=== PATIENT | female | born 1965 | race Caucasian/White ===

== ENCOUNTER → 2020-03-29 14:42 | Outpatient (BNVA) | payer BC, SELFPAY | PROVIDERS: Referring Provider Registered Nurse; Visit Provider Podiatrist Foot & Ankle Surgery | DX: M79.671 Pain in right foot (principal) | CPT/HCPCS: 73630 ==

== ENCOUNTER 2021-01-01 10:25 | Outpatient (CLI) | payer BC, SELFPAY ==
--- NOTE | 2021-01-01 10:38 | US_ITS ---
WS: [id number] ULTRASOUND BILATERAL BREASTs HISTORY: BENIGN HX OF LT BREAST CYST COMPARISON: 11/03/2019 RIGHT breast ultrasound. TECHNIQUE: 2-D and Doppler. RIGHT breast: All 4 quadrants are imaged. There is a small cyst at 10:00, 3 cm the nipple measuring 5 x 4 x 6 mm. There are several small cysts. No solid mass or shadowing. LEFT breast: No suspicious mass or shadowing. Cyst at 2:00, 3 cm the nipple measures 8 x 5 x 6 mm. Th ere are additional smaller cysts. US/[place] breast [place] complete [id number] IMPRESSION: BI-RADS: 0-Incomplete: Need additional imaging evaluation FOLLOW-UP: Need Additional Imaging Recommend screening mammogram. Breast ultrasound does not replace screening jorje mography. Last mammogram available for review is 11/03/2019.
== END 2021-01-01 10:26 | disposition home or self-care (01) ==
PROVIDERS: PCP Family Medicine; Visit Provider Registered Nurse
DX: N60.02 Solitary cyst of left breast (principal)
CPT/HCPCS: 76641

== ENCOUNTER 2021-01-11 15:37 | Outpatient (CLI) | payer BC, SELFPAY ==
--- NOTE | 2021-01-11 15:42 | MM_ITS ---
WS: [id number] BILATERAL SCREENING DIGITAL MAMMOGRAM WITH CAD HISTORY: SCREENING COMPARISON: 11/03/2019 and 10/22/2019 Bilateral CC and MLO views submitted. Computer aided detection analyzed. Breast composition: The breasts are heterogeneously dense, which may obscure small masses. No suspici ous masses, microcalcifications or architectural distortion. Benign calcifications scattered within e ach breast. MM/[place] [id number] IMPRESSION: BI-RADS: 2-Benign FOLLOW UP: 1 Year Follow-up
== END 2021-01-11 15:38 | disposition home or self-care (01) ==
LOC: RADSHAW 15:40
PROVIDERS: PCP Family Medicine; Visit Provider Registered Nurse
DX: Z12.31 Encounter for screening mammogram for malignant neoplasm of breast (principal)
CPT/HCPCS: 77067

== ENCOUNTER 2022-11-07 11:41 | Outpatient (CLI) | payer BC, SELFPAY ==
--- NOTE | 2022-11-07 11:48 | MM_ITS ---
WS: [id number] BILATERAL SCREENING DIGITAL TOMOSYNTHESIS MAMMOGRAM WITH CAD HISTORY: SCREENING COMPARISON: 01/11/2021, 10/22/2019 Bilateral CC and MLO views with tomosynthesis and synthetic mammography submitted. Computer aided det ection analyzed. Breast composition: The breasts are heterogeneously dense, which may obscure small masses. No suspici ous masses, microcalcifications or architectural distortion. Benign calcifications in each breast. MM/[place] [id number] IMPRESSION: BI-RADS: 2-Benign FOLLOW UP: 1 Year Follow-up
== END 2022-11-07 11:42 | disposition home or self-care (01) ==
PROVIDERS: PCP Family Medicine; Visit Provider Registered Nurse
DX: Z12.31 Encounter for screening mammogram for malignant neoplasm of breast (principal)
CPT/HCPCS: 77063; 77067

== ENCOUNTER 2023-05-30 13:30 | Outpatient (CLI) | payer OTHER, SELFPAY ==
[2023-05-30 14:38] LABS: Free T4 Free Thyroxine 1.44 ng/dL (0.82-1.77); Thyroid Stimulating Hormone 1.16 uIU/mL (0.27-4.20)
[2023-05-31 09:39] LABS: T3 Total 114 ng/dL (76-181)
== END 2023-05-30 13:31 | disposition home or self-care (01) ==
PROVIDERS: PCP Registered Nurse; Visit Provider Internal Medicine
DX: E07.9 Disorder of thyroid, unspecified (principal)
CPT/HCPCS: 36415; 84403; 84439; 84443; 84480

== ENCOUNTER 2023-11-25 13:49 | Inpatient (IN) | payer OTHER, SELFPAY ==
[2023-11-25] VITALS (35 sets, daily range): BP systolic 156–194; BP diastolic 74–115; PULSE 64–84; RESP 14–21; TEMP 36.3–36.9; O2SAT 93–100; BMI 26.9; BMI 26.0
--- NOTE | 2023-11-25 14:03 | XR_ITS ---
WS: [id number] Portable AP upright chest, 11/25/2023 Clinical Data: cp Comparison: None. Findings: No nodules, masses or effusions are seen. The heart is normal. The pulmonary vascularity is not increased. No pneumonia or pneumothorax is seen. The aortic arch and descending thoracic aorta s how tortuosity. There are monitor leads on the chest wall. There is a dextroscoliosis. There is a hea led left posterior lateral sixth rib fracture. Impression: Atherosclerosis.
[2023-11-25 14:07] LABS: Basophils % 0.5 %; Eosinophils % 0.3 %; Hematocrit 44.3 % (36-47); Lymphocytes # 2.2 10^3/uL (0.8-4.8); Lymphocytes % 30.4 %; Mean Corpuscular HGB Conc 31.8 g/dL (30-55); Mean Corpuscular Hemoglobin 29.6 pg (27-33); Mean Corpuscular Volume 93.1 fl (85-98); Mean Platelet Volume 9.9 fL (7.4-10.4); Monocytes # 0.5 10^3/uL (0.2-0.9); Monocytes % 6.5 %; Neutrophils # 4.55 10^3/uL (1.8-7.7); Nucleated Red Blood Cells % 0 %; Platelet Count 249 10^3/cmm (157-399); Red Blood Count 4.76 10^6/uL (3.85-5.65); Red Cell Distribution Width 12.9 % (12.1-15.1); White Blood Count 7.34 10^3/uL (3.29-11.43)
--- NOTE | 2023-11-25 14:09 | PC.NURSE ---
Pt on bedside cloth doffer
[2023-11-25 14:33] LABS: Alanine Aminotransferase 10 U/L (0-33); Albumin Level 4.4 g/dL (3.5-5.2); Alkaline Phosphatase 63 U/L (35-105); Blood Urea Nitrogen 16 mg/dL (6-20); Calcium 9.1 mg/dL (8.5-10.5); Carbon Dioxide 23 mmol/L (22-29); Chloride 108 mmol/L (98-107); Creatinine Clr Calc Pharmacy 92.2189; Globulin 2.2 g/dL (1.3-4.6); Glomerular Filtration Rate 86.2 mL/min (90-130); Glucose 96 mg/dL (65-115); Lipase 35 U/L (13-60); Osmolality Calculated 299 mOsm/kg (285-295); Sodium 144 mmol/L (136-145); Total Bilirubin 0.6 mg/dL (0.15-1.2); Total Protein 6.6 g/dL (6.6-8.7)
[2023-11-25 14:39] LABS: Anion Gap 16.9 (5-19); Aspartate Amino Transferase 15 U/L (0-32); Potassium 3.9 mmol/L (3.5-5.1)
[2023-11-25 14:42] LABS: Troponin(5th) Baseline < 6 ng/L (0-10)
[2023-11-25 14:47] LABS: INR 0.93 (0.8-1.2)
--- NOTE | 2023-11-25 15:12 | ED_ITS ---
HPI - Chest Pain 2 General: Chief Complaint: Chest Pain Stated Complaint: chest pain Time Seen by Provider: 11/25/23 14:45 Source: patient Mode of arrival: ambulatory History of Present Illness: 58-year-old female presents emergency ro om complaining of chest pain that began while at rest. She thought it was due to stress that happened about 30 minutes prior to arrival by the time she arrives here it is resolved. She did take Tums aspirin diazepam. She had a little shortness of breath with it as well as symptoms radiated into her neck and arms. No known history of coronary disease she is not short of breath at this time no difficulty speech swallowing or gait. MD complaint: chest pain Onset (ago): minute(s) (30) Prior episodes: No Onset: during rest Pain location: substernal Pain radiation: right arm, left arm, left shoulder and right shoulder Severity: moderate Quality: aching and heaviness Relieving factors: nothing Exacerbating factors: nothing Associated symptoms: Reports dyspnea; Deny abdominal pain, diaphoresis, fever(s), leg edema, nausea, palpitations, sense of impending doom, syncope or vomiting Treatment prior to arrival: aspirin Review of Systems 2 Const: Denies: fever(s) or diaphoresis Card: Reports: chest pain; Denies: palpitations or syncope Resp: Reports: dyspnea GI: Denies: abdominal pain, nausea or vomiting [facility] ED 2 PFSH: Medical History (Updated 11/26/23 @ 15:00 by Levar Jin DO) Scoliosis Accelerated essential hypertension Occasional tremors Surgical History Hx of dilation and curettage Family History Father Hypertension Mother Hypothyroidism Sister Hypothyroidism Social History Smoking and tobacco/nicotine status: current some day tobacco/nicotine user cigarettes Alcohol intake: current Alcohol intake frequency: few times a week Course 2 Vital Signs: Vital signs: Vital Signs Temperature 98.2 F 11/26/23 14:00 Pulse Rate 77 11/26/23 14:00 Respiratory Rate 12 11/26/23 14:00 Blood Pressure 145/72 11/26/23 14:00 Pulse Oximetry 96 11/26/23 14:00 Oxygen Delivery Me thod Room Air 11/26/23 08:15 MDM - Chest Pain Medical Decision Making 2-hour troponin is a positive delta of 95 EKG does not show any acute changes. Started on heparin drip initially she was given aspirin and put on nitro will 3 history of Frova Nitropaste to nitro drip. Discussed with hospitalist and with ciaio lumite injector will admit for cardiology consult. Medical Records I reviewed the patient's medical records. Lab Data I reviewed the patient's lab results. 11/26/23 06:05 11/26/23 06:05 Laboratory Results WBC 7.34 10^3/uL (3.29-11.43) 11/25/23 14:01 RBC 4.76 10^6/uL (3.85-5.65) 11/25/23 14:01 Hgb 14.10 g/dL (11.27-16.99) 11/25/23 14:01 Hct 44.3 % (36-47) 11/25/23 14:01 MCV 93.1 fl (85-98) 11/25/23 14:01 MCH 29.6 pg (27-33) 11/25/23 14:01 MCHC 31.8 g/dL (30-55) 11/25/23 14:01 RDW 12.9 % (12.1-15.1) 11/25/23 14:01 Plt Count 249 10^3/cmm (157-399) 11/25/23 14:01 MPV 9.9 fL (7.4-10.4) 11/25/23 14:01 Neut % (Auto) 62.0 % 11/25/23 14:01 Lymph % (Auto) 30.4 % 11/25/23 14:01 Cocke % (Auto) 6.5 % 11/25/23 14:01 Eos % (Auto) 0.3 % 11/25/23 14:01 Baso % (Auto) 0.5 % 11/25/23 14:01 Neut # (Auto) 4.55 10^3/uL (1.8-7.7) 11/25/23 14:01 Lymph # (Auto) 2.2 10^3/uL (0.8-4.8) 11/25/23 14:01 Cocke # (Auto) 0.5 10^3/uL (0.2-0.9) 11/25/23 14:01 Eos # (Auto) 0.0 10^3/uL (0.0-0.8) 11/25/23 14:01 Baso # (Auto) 0.0 10^3/uL (0.0-0.1) 11/25/23 14:01 Nucleated RBC % (auto) 0 % 11/25/23 14:01 Nucleated RBCs # 0.0 /100WBC 11/25/23 14:01 PT 12.80 SECONDS (12.1-14.9) 11/25/23 14:01 INR 0.93 (0.8-1.2) 11/25/23 14:01 Sodium 144 mmol/L (136-145) 11/25/23 14:01 Potassium 3.9 mmol/L (3.5-5.1) 11/25/23 14:01 Chloride 108 mmol/L (98-107) H 11/25/23 14:01 Carbon Dioxide 23 mmol/L (22-29) 11/25/23 14:01 Anion Gap 16.9 (5-19) 11/25/23 14:01 BUN 16 mg/dL (6-20) 11/25/23 14:01 Creatinine 0.7 mg/dL (0.5-0.9) 11/25/23 14:01 GFR Calculation 86.2 mL/min (90-130) L 11/25/23 14:01 Glucose 96 mg/dL (65-115) 11/25/23 14:01 Calculated Osmolality 299 mOsm/kg (285-295) H 11/25/23 14:01 Calcium 9.1 mg/dL (8.5-10.5) 11/25/23 14:01 Total Bilirubin 0.6 mg/dL (0.15-1.2) 11/25/23 14:01 AST 15 U/L (0-32) 11/25/23 14:01 ALT 10 U/L (0-33) 11/25/23 14:01 Alkaline Phosphatase 63 U/L (35-105) 11/25/23 14:01 Troponin T Baseline < 6 ng/L (0-10) 11/25/23 14:01 Troponin T 120 Minute 101.2 ng/L (0-10) H 11/25/23 16:12 Delta Troponin T 95.18375 ABS# (0-10) H* 11/25/23 16:12 Total Protein 6.6 g/dL (6.6-8.7) 11/25/23 14:01 Albumin 4.4 g/dL (3.5-5.2) 11/25/23 14:01 Globulin 2.2 g/dL (1.3-4.6) 11/25/23 14:01 Lipase 35 U/L (13-60) 11/25/23 14:01 All radiology interpretation(s) finalized by discharge Discharge Plan Discharge Patient Disposition: Admitted As Inpatient Admit Provider: Arnold Hatch Clinical Impression: NSTEMI (non-ST elevated myocardial infarction), Hypertension Condition: Stable Coding Level of Care Code ED Senior Manager Mmcoe for Imelda Das
--- NOTE | 2023-11-25 15:54 | ECG_ITS ---
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 Measurements Intervals [place] Rate: 60 P: 64 TN: 183 QRS: -52 QRSD: 84 T: 18 QT: 388 QTc: 390 Interpretive Statements SINUS RHYTHM POSSIBLE LEFT ATRIAL ENLARGEMENT [-0.1mV P-WAVE IN V1/V2] POSSIBLE RIGHT VENTRICULAR CONDUCTION DELAY [RSR (QR) IN V1/V2] LEFT ANTERIOR FASCICULAR BLOCK [QRS AXIS <= -45, QR IN I, RS IN II] No previous ECG available for comparison Electronically Signed On 11-25-2023 21:37:57 CDT by Mckay Sher M.D. [email or web address]
[2023-11-25 17:23] LABS: Troponin 5 2HR 101.2 ng/L (0-10); Troponin 5 2HR Delta 95.20001 ABS# (0-10)
--- NOTE | 2023-11-25 17:46 | USCV_ITS ---
Elizabeth Nena Age: 58 Gender: F : 1965 Exam Date: 11/25/2023 20:10 Ordering Phys: Arnold Hatch MD Technologist: KESHA Exam Location: [facility] [place] Indication: order says NSTEMI , no history of cardiac intervention per patient. BP: 171 / 77 HR: 74 Rhythm: Sinus Technical Quality: Good MEASUREMENTS (Male / Female) Normal Values 2D ECHO LV Diastolic Diameter PLAX 3.5 cm 4.2 - 5.9 / 3.9 - 5.3 cm IVS Diastolic Thickness 1.0 cm 0.6 - 1.0 / 0.6 - 0.9 cm IVS Systolic Thickness 1.6 cm LVPW Diastolic Thickness 1.1 cm 0.6 - 1.0 / 0.6 - 0.9 cm LVPW Systolic Thickness 1.7 cm LVOT Diameter 1.9 cm LV Ejection Fraction 2D Teich 64.7 % LV Ejection Fraction MOD 2C 77.0 % LV Ejection Fraction 2C AL 78.5 % LA Diameter 2.6 cm Aorta at Sinotubular Diameter 3.2 cm IVC Diameter 1.3 cm M-MODE LA Ao Ratio MM 0.9 AV Cusp Separation MM 1.8 cm DOPPLER AV Peak Velocity 120.0 cm/s LVOT Peak Velocity 124.0 cm/s AV Area Cont Eq vti 2.8 cm squared AV Area Cont Eq pk 2.8 cm squared MV Peak Velocity 83.0 cm/s MV Area PHT 2.9 cm squared Mitral E to A Ratio 0.7 TR Peak Velocity 229.0 cm/s TR Peak Gradient 21.0 mmHg TV Peak E Velocity 55.0 cm/s Right Atrial Pressure 3.0 mmHg Pulmonary Artery Systolic Pressu 24.0 mmHg PV Peak Velocity 93.0 cm/s FINDINGS Left Ventricle Left ventricle is normal in size. LV systolic function is normal with EF of 60 to 65%. No regional wall motion abnormalities are seen. Grade 1 diastolic dysfunction Right Ventricle Normal in size and function Right Atrium Normal in size Left Atrium Normal in size Mitral Valve Structurally normal mitral valve. Mild mitral regurgitation Aortic Valve Structurally normal aortic valve. No significant stenosis or regurgitation. Tricuspid Valve Mild tricuspid regurgitation. Pulmonary artery systolic pressure is normal. Pulmonic Valve Not well visualized Pericardium Normal Aorta Ascending aorta is mildly dilated with diameter of 3.6 cm. IVC Appears to be normal CONCLUSIONS LV systolic function is normal with EF of 60-65% Grade 1 diastolic dysfunction Mild mitral regurgitation Mild tricuspid regurgitation Ascending aorta is mildly dilated with diameter of 3.6cm No comparison studies are available. Mckay Sher MD (Electronically Signed) Final Date: 26 November 2023 07:51 S
--- NOTE | 2023-11-25 17:51 | P.HP_ITS ---
Providers/Chief Complaint 2 Primary Care Provider: GLADYS Valencia Chief Complaint: chest pain History of Present Illness Nena Johnson is a 58 year old female With a past medical history of hypertension, hypertension, who presents [facility] for chest pain, patient tells me that this morning at work, she had a sudden onset of substernal chest pain pressure-like pain lasting a few minutes radiating down her right arm, no associated shortness of breath no associated lightheadedness, she was at work so her coworkers advised her to take 81 mg aspirin, however chest pain per assisted so she came to [facility] for evaluation, she did admit that she took phentermine this morning she uses it for weight loss, she is chronically on phentermine and she does have an estradiol patch which I advised her to remove, she did also take progesterone this morning, she is on hormone replacement for postmenopausal symptoms, she tells me that she is recently under a lot of stress, she is going through her divorce, denies any prior history of CAD no prior history of chest pain no family history of CAD currently she is chest pain-free, blood pressure 170/180, pulse 72 respiratory 18, she is on room air, Review of Systems 2 Const: Denies: fever(s) Card: Reports: chest pain Resp: Denies: dyspnea GI: Denies: abdominal pain : Denies: flank pain Medications/Allergies Home Medications Medication Instructions Recorded Confirmed Last Taken Type diazepam 5 mg tablet 5 mg PO TID PRN Anxiety 03/29/20 11/25/23 11/25/23 History propranolol 20 mg tablet 20 mg PO BID 03/29/20 11/25/23 11/24/23 History brassica extract 25 mg PO DAILY 03/12/23 11/25/23 11/24/23 History diindolylmethane 150 mg-broccoli 1 cap PO DAILY 03/12/23 11/25/23 11/24/23 History seed extract 30 mg capsule pomegranate fruit extract 250 mg 100 mg PO DAILY 03/12/23 11/25/23 11/24/23 History capsule estradiol 0.025 mg/24 hr weekly 1 patch transdermal Q7D #12 ea 11/17/23 11/25/23 11/25/23 Rx transdermal patch progesterone micronized 200 mg 200 mg PO DAILY #90 caps 03/08/0111/25/23 11/25/23 Rx capsule phentermine 37.5 mg tablet 18.75 mg PO QAM PRN appetite 11/25/23 11/25/23 11/25/23 History tretinoin 0.025 % topical cream See Rx Instructions .Route .COMPLEX 11/25/23 11/25/23 Unknown History Allergies Allergy/AdvReac Type Severity Reaction Status Date / Time Penicillins Allergy Unknown unknown Verified 11/25/23 13:56 PFSH Acute 2 PFSH: Medical History (Updated 11/25/23 @ 17:57 by Arnold Hatch MD) Scoliosis Accelerated essential hypertension Occasional tremors Surgical History Hx of dilation and curettage Family History Father Hypertension Mother Hypothyroidism Sister Hypothyroidism Social History Smoking and tobacco/nicotine status: current some day tobacco/nicotine user cigarettes Alcohol intake: current Alcohol intake frequency: few times a week Vitals/I&O/Wt Last Vital Signs Temp 97.4 F L 11/25/23 13:52 Pulse 72 11/25/23 16:30 Resp 18 11/25/23 16:30 BP 171/77 11/25/23 16:30 Pulse Ox 96 11/25/23 16:30 O2 Del Method Room Air 11/25/23 16:30 Weight last 48 hrs Weight 75.75 kg Physical Exam 2 Const: COMMON NORMALS: no acute distress and patient oriented x3 HENMT: COMMON NORMALS: normocephalic HEAD & SCALP: normocephalic Eye: COMMON NORMALS: Equal, round and reactive pupils present and EOMs intact bilaterally Neck/C-Spine: COMMON NORMALS: no JVD Lymph: LYMPHATIC: no lymphadenopathy noted Resp: COMMON NORMALS: normal respiratory effort, No retractions, No use of accessory muscles and clear to auscultation bilaterally AUSCULTATION: clear to auscultation bilaterally Cardio: COMMON NORMALS: no JVD, regular rate, regular rhythm, S1 normal heart sound present and S2 normal heart sound present RATE: regular rate RHYTHM: regular rhythm HEART SOUNDS: S1 normal heart sound present and S2 normal heart sound present GI: COMMON NORMALS: Normal to inspection, nondistended, normoactive bowel sounds present, Soft to palpation, non-tender, No hepatosplenomegaly present, no masses and no bruits PALPATION: Yes Soft to palpation Extremity: COMMON NORMALS: no calf tenderness and no pedal edema Neuro: COMMON NORMALS: patient oriented x3, CN's II-XII intact bilaterally, moves all extremities and no focal motor deficits Psych: COMMON NORMALS: mental status grossly normal Data 11/25/23 14:01 11/25/23 14:01 A&P Assessment and plan (1) NSTEMI (non-ST elevated myocardial infarction): (2) Chest pain: (3) Hypertensive emergency: Plan Chest pain, NSTEMI, ? EKG no acute ST-T wave changes, ? 120-minute troponin 1-1.2, delta 95 ? Currently chest pain-free Plan -Admit to [facility] -Spoke to ER provider -Has received aspirin 81 mg -Start atorvastatin 40 mg -Start Coreg 3.125 twice daily, patient denies IV drug use, denies cocaine use -Loaded with Plavix 600 mg, spoke to cardiology -Heparin drip -Hypertensive emergency, start nitroglycerin drip -Monitor blood pressures closely -Stat cardiac echocardiogram -Keep n.p.o. -Cardiology consulted for coronary angiography Attestations 2 Medical Necessity Statement*: patient requires hospitalization, inpatient, greater than 2 midnights, for chest pain, NSTEMI Diagnoses NSTEMI (non-ST elevated myocardial infarction) I21.4 Chest pain R07.9 Hypertensive emergency I16.1
[2023-11-25] MEDS: heparin drip 25,000 UNIT/500 ML PREMIX 21 UNIT IV (17:54)
[2023-11-25] MEDS: heparin 5,000 unit/mL INJ 1 mL IV (17:54)
[2023-11-25] MEDS: nitroglycerin drip 50 MG/250 ML PREMIX IV (17:57)
--- NOTE | 2023-11-25 18:03 | P.CONIM_ITS ---
Providers/Reason For Consult 2 Consulting Physician/Specialty*: Mckay Sher MD/ Cardiology Reason for Consult*: NSTEMI Requesting Physician: Dr Jin Attending Physician: Dr Hatch Primary Care Provider: GLADYS Valencia History of Present Illness History of Present Illness Nena Johnson is a 58 year old female With no significant prior cardiac history presented to hospital with about 15 to 20 minutes of chest pain. It was significant substernal pain.Her initial troponin was 6 that has trended up to 102 at 6 hours.EKG does not show significant ST-T wave changes.Her blood pressure is in 170s. Review of Systems 2 Const: Denies: fever(s) Card: Reports: chest pain Resp: Denies: dyspnea GI: Denies: abdominal pain : Denies: flank pain Medications/Allergies Home Medications Medication Instructions Recorded Confirmed Last Taken Type diazepam 5 mg tablet 5 mg PO TID PRN Anxiety 03/29/20 11/25/23 11/25/23 History propranolol 20 mg tablet 20 mg PO BID 03/29/20 11/25/23 11/24/23 History brassica extract 25 mg PO DAILY 03/12/23 11/25/23 11/24/23 History diindolylmethane 150 mg-broccoli 1 cap PO DAILY 03/12/23 11/25/23 11/24/23 History seed extract 30 mg capsule pomegranate fruit extract 250 mg 100 mg PO DAILY 03/12/23 11/25/23 11/24/23 History capsule estradiol 0.025 mg/24 hr weekly 1 patch transdermal Q7D #12 ea 11/17/23 11/25/23 11/25/23 Rx transdermal patch progesterone micronized 200 mg 200 mg PO DAILY #90 caps 11/17/23 11/25/23 11/25/23 Rx capsule phentermine 37.5 mg tablet 18.75 mg PO QAM PRN appetite 11/25/23 11/25/23 11/25/23 History tretinoin 0.025 % topical cream See Rx Instructions .Route .COMPLEX 11/25/23 11/25/23 Unknown History Allergies Allergy/AdvReac Type Severity Reaction Status Date / Time Penicillins Allergy Unknown unknown Verified 11/25/23 13:56 Current Medications Generic Name Dose Route Start Last Admin Trade Name Freq PRN Reason Stop Dose Admin Heparin Sodium (Porcine) 0 unit 11/25/23 17:27 11/25/23 17:54 Heparin 5,000 Unit/Ml Inj 1 Ml IV 3,800 unit PRN PRN Administration Heparin weight-base protocol Protocol Heparin Sodium/Sodium Chloride 25,000 unit in 500 mls @ 0 mls/hr 11/25/23 17:30 11/25/23 17:54 Heparin Drip IV 13.86 unit/kg/hr .Q0M KEILA 21 mls/hr Administration Protocol Per Protocol Nitroglycerin/Dextrose 50 mg in 250 mls @ 0 mls/hr 11/25/23 17:30 11/25/23 17:57 Nitroglycerin Drip IV 5 mcg/min .Q0M KEILA 1.5 mls/hr Administration Protocol Per Protocol PFSH Acute 2 PFSH: Medical History Scoliosis Accelerated essential hypertension Occasional tremors Surgical History Hx of dilation and curettage Family History Father Hypertension Mother Hypothyroidism Sister Hypothyroidism Social History Smoking and tobacco/nicotine status: current some day tobacco/nicotine user cigarettes Alcohol intake: current Alcohol intake frequency: few times a week Vitals/I&O/Wt Last Vital Signs Temp 97.4 F L 11/25/23 13:52 Pulse 72 11/25/23 16:30 Resp 18 11/25/23 16:30 BP 171/77 11/25/23 16:30 Pulse Ox 96 11/25/23 16:30 O2 Del Method Room Air 11/25/23 16:30 Weight last 48 hrs Weight 167 lb Physical Exam 2 Narrative: GENERAL: Patient is alert, awake and oriented x3. [] NECK: No jugular vein distension. [] HEENT: No cyanosis. No icterus. No pallor. [] HEART: Regular S1 and S2. No murmur, rub or gallop. [] LUNGS: Clear to auscultate bilaterally. [] CENTRAL NERVOUS SYSTEM: Grossly nonfocal. [] EXTREMITIES: Lower extremities with 1+ edema bilaterally Data 11/26/23 06:05 11/25/23 14:01 A&P Assessment and plan (1) NSTEMI (non-ST elevated myocardial infarction): (2) Chest pain: Plan Patient has presented with typical chest pain symptoms with significant troponin elevation. Findings consistent with NSTEMI. Her blood pressure is also elevated however with systolic blood pressure in 170s. Less likely demand ischemia but it is a possibility Continue aspirin. Continue heparin for anticoagulation. Plan for coronary angiogram with possible percutaneous coronary intervention tomorrow. Risks and benefits of the procedure discussed. Order echocardiogram Thank you for involving us with care of this patient. We will continue to follow. Please call with questions. Consult Attestations 2 Medical Necessity Statement: Care expected to cross 2 midnights. Coding Level of Care Code Acute Code for [facility] Diagnoses NSTEMI (non-ST elevated myocardial infarction) I21.4 Chest pain R07.9
--- NOTE | 2023-11-25 19:08 | PC.NURSE ---
Report to RONI Ramírez
[2023-11-25 21:29] LABS: Troponin 5 6HR 213.7 ng/L (0-10)
[2023-11-25 21:30] LABS: Troponin 5 6HR Delta 207.70001 ng/L (0-12)
[2023-11-25] MEDS: carvedilol 3.125 mg Tablet PO (22:22)
[2023-11-25] MEDS: pantoprazole 40 mg SDV IVP (22:22)
[2023-11-25] MEDS: clopidogrel 300 mg Tablet 600 MG PO (22:22)
[2023-11-25 23:38] LABS: Partial Thromboplastin Time 101.6 SECONDS (23.9-36.7)
[2023-11-26] VITALS (48 sets, daily range): BP systolic 130–177; BP diastolic 58–99; PULSE 57–86; RESP 8–33; TEMP 36.6–36.8; O2SAT 93–100; BMI 26.0
[2023-11-26] MEDS: diphenhydrAMINE 50 mg Capsule PO (06:08)
[2023-11-26] MEDS: aspirin 325 mg Tablet PO (06:08)
[2023-11-26] MEDS: sodium chloride 0.9% 1,000 ML 50 ML IV (06:08)
[2023-11-26] MEDS: diazePAM 5 mg Tablet PO ×3 (06:34→21:12)
[2023-11-26 06:38] LABS: Basophils # 0.1 10^3/uL (0.0-0.1); Eosinophils % 0.5 %; Hematocrit 44.2 % (36-47); Lymphocytes # 2.4 10^3/uL (0.8-4.8); Lymphocytes % 40.6 %; Mean Corpuscular HGB Conc 32.8 g/dL (30-55); Mean Corpuscular Hemoglobin 30.3 pg (27-33); Mean Corpuscular Volume 92.3 fl (85-98); Monocytes # 0.5 10^3/uL (0.2-0.9); Monocytes % 7.8 %; Neutrophils # 2.89 10^3/uL (1.8-7.7); Neutrophils % 49.9 %; Nucleated Red Blood Cells % 0 %; Platelet Count 251 10^3/cmm (157-399); Red Blood Count 4.79 10^6/uL (3.85-5.65); Red Cell Distribution Width 12.8 % (12.1-15.1); White Blood Count 5.79 10^3/uL (3.29-11.43)
[2023-11-26 06:45] LABS: Partial Thromboplastin Time 71.6 SECONDS (23.9-36.7)
[2023-11-26 06:51] LABS: Chol HDL Ratio 2.21 mg/dL (0.0-4.40); Cholesterol 172 mg/dL (0-200); HDL Cholesterol 78 mg/dL (60-100); LDL Cholesterol Calculated 83 mg/dL (50-129); LDL HDL Ratio 1.06 RATIO (0.00-3.22); NT Pro B Type Natriuretic Pept 180 pg/mL (0-125); Triglycerides 57 mg/dL (0-150)
[2023-11-26 06:56] LABS: INR 1.02 (0.8-1.2)
--- NOTE | 2023-11-26 07:05 | XACV_ITS ---
Exam Room: [facility] Ht: 168 cm Wt: 73 kg BSA: 1.86 m2 Gender: Female : 1965 Any Known Allergies: Penicillins Exam Priority: Routine Procedure(s): Procedure Description: Diagnostic procedure Procedure Description: Left Heart Catheterization Procedure Description: Left ventriculography Procedure Description: Coronary Angiography Diagnostic Cath Status: Urgent Diagnostic Findings * No significant disease noted in the Left Main, Left Anterior Descending, Right, or Circumflex coronary arteries. * Coronary angiography shows right dominance. Conclusions 1. No significant disease noted in the Left Main, Left Anterior Descending, Right, or Circumflex coronary arteries. 2. Normal left ventricular systolic function. Ejection fraction of 55%. Recommendations * Aggressive blood pressure control. * Outpatient cardiology follow up in 2-4 weeks. Interventional RX Recommendation: medical therapy and/or counseling Diagnostic RX Recommendation: medical therapy and/or counseling Anticoagulation: Heparin Ventriculography Ejection Fraction: 55.0 % Pressures Phase:Rest AO : 144 / 85 ( 111 ) @ 8:31:00 AM 136 / 88 ( 111 ) @ 8:31:00 AM 131 / 82 ( 105 ) @ 8:32:00 AM 174 / 94 ( 130 ) @ 8:37:00 AM 173 / 94 ( 129 ) @ 8:37:00 AM LV : 167 / -19 / 11 @ 8:36:00 AM 178 / -8 / 23 @ 8:37:00 AM 179 / -9 / 22 @ 8:37:00 AM Valves Phase:DefaultPhase AV : 6.0 @ 7:43:42 AM 6.0 @ 7:43:42 AM AV Mean Gradient: 11.0 @ 7:43:42 AM Clinical Evaluation EBL: 5mL-10mL Procedural Details Procedure Consent Obtained. Current Diagnosis : Chest Pain. Pre-Procedure Time Out. Identified patient by full name and date of as verbalized by the patient/guarantor. Does the consent match the physician's order: Yes. Accurate & Complete Informed Consent: Yes. Inpatient/Outpatient History & Physical on Chart: Yes. If H&P is completed, is and addenduem needed: No; If yes, is the addendum complete: N/A. Visualize and Verify Site with Patient/Guarantor: N/A. Relevant Radiology Images available: Yes. Pre-op teaching completed and patient verbalized understanding. The risks, benefits, and alternatives of sedation and/or procedure were discussed by physician. The patient agrees to continue. Procedure started. [facility] Clinical Fraility Score: 3: Managing Well. Finishing Range Feeder Indications: Other; Nonstemi. Chest Pain Symptom Assessment: Typical Angina Symptoms. Correct patient, site and procedure confirmed by cath team. Current diagnosis: Chest Pain. PERRLA. Strong, equal hand supervisory it specialist bilaterally. Lungs clear x 5 lobes. IV Site on Arrival: 18 gauge in the right anticubital. IV Fluids: 0.9% NaCl at KVO. 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 Physician arrived. Oxygen started at 2liters/min via nasal canula. right groin was prepped with chloroprep then draped in the usual sterile fashion. right radial was prepped with chloroprep then draped in the usual sterile fashion. Baseline sample Acquired. HR: 80 BPM. Physician scrubbed in. Immediate Pre-Procedure Time Out. Correct Patient: Yes; Correct Procedure: Yes; Correct Site: Yes; Correct Patient Position: Yes; Correct Supplies: Yes; Dried Flammable Prep: Yes; Blood Products Available: N/A;. Lidocaine 1% infiltrated to the right radial. Arterial access obtained. A 5 mo[place] TIG catheter in over wire. Multiple views taken of left coronary artery. Catheter redirected to the RCA. Multiple views taken of right coronary artery. Catheter removed over the exchange wire. A 5 mo[place]amb[place] Angled Pig catheter in over wire. EDP Sample taken: LV 167/-20,11; HR: 77 BPM; SpO2: 91%. LV gram performed in MILLS @ 10 mL/second for a total of 30 mL. EDP Sample taken: LV 178/-9,23; HR: 84 BPM; SpO2: 90%. Pullback taken: LV 179/-10,22; AO 174/94(130); Mean: 11mmHg, Peak to Peak: 6mmHg, SEP: 23sec/min; HR: 83 BPM; SpO2: 92%. Catheter removed over the exchange wire. A TR Band was successful obtaining hemostatsis at the Right Radial artery insertion site. Post Procedure: Pulses reassessed and unchanged. PERRLA. Strong, equal hand supervisory it specialist bilaterally. No VTE prophylaxis required. Medication's Wasted: Nitro = 49.8 mg. Medication's Wasted: Heparin = 3000 units. Medication's Wasted: Other = Fentanyl 25 mg. Total IV fluids: 30 mL. Vital chart was stopped. Complications: None. Estimated blood loss: 5mL-10mL. Responsiveness - Normal response to verbal stimuli; alert and oriented, PERRLA. Airway - Unaffected, no intervention required; spontaneous ventilation. Circulation: W/N/L, pulses unchanged. Nausea/Vomiting: No. Procedure completed. Patient transferred by wheelchair to CPRU. Access Site Site: Right Radial artery Sheath Size: 6 Fr Hemostasis Method: TR Band Hemostasis Success: Successful Procedure Medications Start: 7:21 AM Stop: 7:21 AM Medication: Versed Amount: 1 mg Route: I.V. Start: 7:21 AM Stop: 7:21 AM Medication: Fentanyl Amount: 50 mcg Route: I.V. Start: 7:26 AM Stop: 7:26 AM Medication: Versed Amount: 1 mg Route: I.V. Start: 7:29 AM Stop: 7:29 AM Medication: Nitrogylcerin Amount: 200 mcg Route: I.A. Start: 7:30 AM Stop: 7:30 AM Medication: Fentanyl Amount: 25 mcg Route: I.V. Start: 7:30 AM Stop: 7:30 AM Medication: Heparin Amount: 3000 units Route: I.V. I, the attending physician, have reviewed and verified all procedure medications. Yes, all medications given per verbal order History/Risk Factors Hypertension: Yes Dyslipidemia: No Peripheral Arterial Disease (PAD): No Myocardial Infarction (MS): No Obesity: No Renal Disease: No Tobacco Use: Current/Recent(w/in 1 year) Prior Interventions PCI: No CABG: No Valve Surgery: No Report Signatures Finalized by Mckay Sher MD on 12/06/2023 10:22 AM
[2023-11-26 07:17] LABS: Estmated Average Glucose 94; Hemoglobin A1C 4.9 % (4.0-6.0)
--- NOTE | 2023-11-26 07:18 | W.PM.OPSUD ---
Surgery/Procedure H&P Update DATE OF PROCEDURE: November 26, 2023 DATE H&P PERFORMED: 11/25/23 H&P UPDATE INFORMATION: I have reviewed H&P completed within last 30 days, I have examined patient prior to procedure and No changes to prior documentation PREOP DIAGNOSIS: NSTEMI PRIMARY INDICATION FOR PROCEDURE: NSTEMI PLANNED PROCEDURE: Left heart cath with possible percutaneous coronary intervention PATIENT REASSESSED PRIOR TO SEDATION, WITH NO CHANGE NOTED: Yes PHYSICAL EXAM: alert, oriented x 3, clear to auscultation bilaterally and regular rate & rhythm AIRWAY EVAL/ANESTHESIA PLAN: normal airway, ASA III, Local Anesthesia, Risks, benefits & alternatives of sedation and/or procedure discussed and Patient agrees to continue as planned ADDITIONAL INFORMATION: Moderate sedation
--- NOTE | 2023-11-26 07:23 | P.PN_ITS ---
Subjective 2 Subjective: Patient is overall doing well.Denies chest pain.Blood pressure is better controlled. Coronary angiogram did not reveal significant CAD. Vitals/I&O/Wt Last Vital Signs Temp 98.0 F 11/26/23 00:24 Pulse 57 L 11/26/23 05:28 Resp 8 L 11/26/23 04:35 BP 138/78 11/26/23 04:35 Pulse Ox 93 11/26/23 04:35 O2 Del Method Room Air 11/26/23 00:34 11/25/23 11/26/23 11/26/23 22:59 06:59 14:59 Intake Total 240 / 240 135.8 / 375.8 Balance 240 / 240 135.8 / 375.8 Weight last 48 hrs Weight 161 lb 9 oz Weight 161 lb 9 oz Weight 167 lb Physical Exam 2 Narrative: GENERAL: Patient is alert, awake and oriented x3. [] NECK: No jugular vein distension. [] HEENT: No cyanosis. No icterus. No pallor. [] HEART: Regular S1 and S2. No murmur, rub or gallop. [] LUNGS: Clear to auscultate bilaterally. [] CENTRAL NERVOUS SYSTEM: Grossly nonfocal. [] EXTREMITIES: Lower extremities with 1+ edema bilaterally Data 11/26/23 06:05 11/26/23 06:05 A&P Assessment and plan (1) NSTEMI (non-ST elevated myocardial infarction): (2) Chest pain: Plan Patient's coronary angiogram does not reveal significant CAD. Troponin elevation secondary to hypertensive urgency. Blood pressure is better controlled today. Continue Coreg. Will add losartan 50 mg daily. Continue aspirin. Echo shows normal LV systolic function with grade 1 diastolic dysfunction. This is likely secondary to uncontrolled hypertension. Will need close follow-up with cardiology office as outpatient. Thank you for involving us with care of this patient. Please call with questions. Attestations 2 Medical Necessity Statement*: Care expected to cross 2 midnights. Coding Level of Care Code Acute Code for [facility] Diagnoses NSTEMI (non-ST elevated myocardial infarction) I21.4 Chest pain R07.9
[2023-11-26 07:39] LABS: Alanine Aminotransferase 11 U/L (0-33); Albumin Level 4.2 g/dL (3.5-5.2); Alkaline Phosphatase 66 U/L (35-105); Anion Gap 16.1 (5-19); Aspartate Amino Transferase 19 U/L (0-32); Blood Urea Nitrogen 12 mg/dL (6-20); Calcium 9.1 mg/dL (8.5-10.5); Carbon Dioxide 23 mmol/L (22-29); Chloride 106 mmol/L (98-107); Creatinine Clr Calc Pharmacy 90.8382; Glomerular Filtration Rate 86.2 mL/min (90-130); Glucose 89 mg/dL (65-115); Osmolality Calculated 291 mOsm/kg (285-295); Phosphorus 3.4 mg/dL (2.5-4.5); Potassium 4.1 mmol/L (3.5-5.1); Sodium 141 mmol/L (136-145); Thyroid Stimulating Hormone 2.37 uIU/mL (0.27-4.20); Total Bilirubin 1.6 mg/dL (0.15-1.2); Total Protein 6.2 g/dL (6.6-8.7)
--- NOTE | 2023-11-26 07:45 | SUR.PHASEI ---
Post Cath Fluids set at 100 ml/hr. IV fluids are 0.9% NS.
--- NOTE | 2023-11-26 07:45 | SUR.PHASEI ---
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 Status post cardiac catheterization via the right radial approach. TR Band in place and is hemostatic. Verbal post cath instructions went over with the patient. She understood well. Vitals and assessments per flowsheet. Informed to call for needs. Call light within reach.
--- NOTE | 2023-11-26 08:17 | USCV_ITS ---
Nena Johnson Age: 58 Gender: F : 1965 Exam Date: 11/26/2023 08:51 Ordering Phys: Arnold Hatch MD Technologist: Exam Location: [facility] [place] Indication: ? pe PROCEDURES: The venous duplex Doppler examination of both lower extremities was performed in the standard fashion. The following venous structures were evaluated: common femoral vein, profunda vein, proximal portion of the greater saphenous vein, superficial femoral vein, and the popliteal vein. In addition, the posterior tibial and peroneal trunk were evaluated. FINDINGS: Normal 2-D Doppler and augmentation and compressibility throughout the lower extremity venous structures. Additional imaging through the proximal calf veins also reveals no thrombus. Limited evaluation of the greater saphenous vein is patent with no thrombus. CONCLUSIONS No evidence of right lower extremity DVT. No evidence of left lower extremity DVT. Kentrell Caputo MD (Electronically Signed) Final Date: 26 November 2023 09:35 S
[2023-11-26 09:20] LABS: D Dimer <= 0.27 ug/mLFEU (0-0.59)
[2023-11-26] MEDS: aspirin 81 mg EC Tablet PO (09:24)
[2023-11-26] MEDS: carvedilol 3.125 mg Tablet PO ×2 (09:24→17:13)
--- NOTE | 2023-11-26 13:04 | P.PN_ITS ---
Subjective 2 Subjective: patient was seen this morning, her cornonary angiography didnot show obstructive CAD, patient is on hormonal therapy, we discussed her troponin rise and her risk of dvt/pt, will order venous ultrasound, d dimer, and keep till tommorow if her cr is within normal limits will order cta for pulmonary embolism, she voiced understanding all questions answered Vitals/I&O/Wt Last Vital Signs Temp 98.1 F 11/26/23 09:15 Pulse 82 11/26/23 11:15 Resp 17 11/26/23 11:15 BP 142/75 11/26/23 11:15 Pulse Ox 98 11/26/23 11:15 O2 Del Method Room Air 11/26/23 08:15 11/25/23 11/26/23 11/26/23 22:59 06:59 14:59 Intake Total 240 / 240 135.8 / 375.8 360 / 360 Balance 240 / 240 135.8 / 375.8 360 / 360 Weight last 48 hrs Weight 73.284 kg Weight 73.284 kg Weight 75.75 kg Physical Exam 2 Const: COMMON NORMALS: no acute distress and patient oriented x3 Resp: COMMON NORMALS: normal respiratory effort, No retractions, No use of accessory muscles and clear to auscultation bilaterally AUSCULTATION: clear to auscultation bilaterally Cardio: COMMON NORMALS: regular rate, regular rhythm, S1 normal heart sound present and S2 normal heart sound present RATE: regular rate RHYTHM: r egular rhythm HEART SOUNDS: S1 normal heart sound present and S2 normal heart sound present GI: COMMON NORMALS: Normal to inspection, nondistended, normoactive bowel sounds present and non-tender Extremity: COMMON NORMALS: no pedal edema Neuro: COMMON NORMALS: patient oriented x3 Psych: COMMON NORMALS: mental status grossly normal Data 11/26/23 06:05 11/26/23 06:05 A&P Assessment and plan (1) NSTEMI (non-ST elevated myocardial infarction): (2) Chest pain: (3) Hypertensive emergency: Plan Chest pain, NSTEMI, ? EKG no acute ST-T wave changes, ? 120-minute troponin 1-1.2, delta 95 ? Currently chest pain-free -coronary angiography WNL Plan -Admit to CSU atorvastatin 40 mg -Start Coreg 3.125 twice daily, patient denies IV drug use, denies cocaine use -venous us, d dimer, and cta for pe -Monitor blood pressures closely -Stat cardiac echocardiogram -cardiac diet Attestations 2 Medical Necessity Statement*: patient requires hospitalization for nstemi, Diagnoses NSTEMI (non-ST elevated myocardial infarction) I21.4 Chest pain R07.9 Hypertensive emergency I16.1
[2023-11-26] MEDS: acetaminophen 325 mg Tablet 650 MG PO (17:13)
[2023-11-26] MEDS: pantoprazole 40 mg SDV IVP (21:12)
[2023-11-27] VITALS (7 sets, daily range): BP systolic 137–180; BP diastolic 73–90; PULSE 65–75; RESP 16–27; TEMP 36.5–36.7; O2SAT 96–98; BMI 25.9
[2023-11-27 05:21] LABS: Basophils % 0.6 %; Eosinophils # 0.1 10^3/uL (0.0-0.8); Hematocrit 41.4 % (36-47); Lymphocytes # 2.3 10^3/uL (0.8-4.8); Lymphocytes % 36.7 %; Mean Corpuscular HGB Conc 33.3 g/dL (30-55); Mean Corpuscular Hemoglobin 30.4 pg (27-33); Mean Corpuscular Volume 91.2 fl (85-98); Monocytes # 0.5 10^3/uL (0.2-0.9); Monocytes % 8.5 %; Neutrophils # 3.31 10^3/uL (1.8-7.7); Nucleated Red Blood Cells % 0 %; Platelet Count 236 10^3/cmm (157-399); Red Blood Count 4.54 10^6/uL (3.85-5.65); Red Cell Distribution Width 12.9 % (12.1-15.1); White Blood Count 6.24 10^3/uL (3.29-11.43)
[2023-11-27 05:32] LABS: INR 0.99 (0.8-1.2)
[2023-11-27 05:57] LABS: Alanine Aminotransferase 12 U/L (0-33); Albumin Level 3.8 g/dL (3.5-5.2); Alkaline Phosphatase 58 U/L (35-105); Anion Gap 14.9 (5-19); Aspartate Amino Transferase 42 U/L (0-32); Blood Urea Nitrogen 11 mg/dL (6-20); Calcium 8.5 mg/dL (8.5-10.5); Carbon Dioxide 23 mmol/L (22-29); Chloride 105 mmol/L (98-107); Creatinine Clr Calc Pharmacy 105.9779; Globulin 2.3 g/dL (1.3-4.6); Glucose 85 mg/dL (65-115); Osmolality Calculated 287 mOsm/kg (285-295); Phosphorus 3.7 mg/dL (2.5-4.5); Potassium 3.9 mmol/L (3.5-5.1); Sodium 139 mmol/L (136-145); Total Bilirubin 1.2 mg/dL (0.15-1.2); Total Protein 6.1 g/dL (6.6-8.7)
--- NOTE | 2023-11-27 07:54 | P.PN_ITS ---
Subjective 2 Subjective: Patient doing well. no chest pain. Blood pressure is improved. Vitals/I&O/Wt Last Vital Signs Temp 98.0 F 11/27/23 05:48 Pulse 65 11/27/23 05:59 Resp 16 11/27/23 05:48 BP 151/73 11/27/23 05:48 Pulse Ox 98 11/27/23 05:48 O2 Del Method Room Air 11/26/23 08:15 11/26/23 11/27/23 11/27/23 22:59 06:59 14:59 Intake Total 1385.042 / 3676.302 6607 / 2985.042 Balance 1385.042 / 2524.585 1024 / 2985.042 Weight last 48 hrs Weight 161 lb 2 oz Weight 161 lb 9 oz Weight 161 lb 9 oz Weight 167 lb Physical Exam 2 Narrative: GENERAL: Patient is alert, awake and oriented x3. [] NECK: No jugular vein distension. [] HEENT: No cyanosis. No icterus. No pallor. [] HEART: Regular S1 and S2. No murmur, rub or gallop. [] LUNGS: Clear to auscultate bilaterally. [] CENTRAL NERVOUS SYSTEM: Grossly nonfocal. [] EXTREMITIES: Lower extremities with 1+ edema bilaterally Data 11/27/23 04:39 11/27/23 04:39 A&P Assessment and plan (1) NSTEMI (non-ST elevated myocardial infarction): (2) Chest pain: Plan Patient's coronary angiogram does not reveal significant CAD. Troponin elevation secondary to hypertensive urgency. Continue aspirin, Coreg and losartan. Monitor blood pressure at home. Thank you for involving us with care of this patient. Please call with questions. Attestations 2 Medical Necessity Statement*: Care expected to cross 2 midnights. Coding Level of Care Code Acute Code for [facility] Diagnoses NSTEMI (non-ST elevated myocardial infarction) I21.4 Chest pain R07.9
--- NOTE | 2023-11-27 08:33 | CTR_ITS ---
PROCEDURE INFORMATION: Exam: CTA Chest With Contrast Exam date and time: 11/27/2023 11:00 AM Age: 58 years old Clinical indication: Sternal or substernal pain; Additional info: Nstemi, on hormone replacement therapy, chest pain TECHNIQUE: Imaging protocol: Computed tomographic angiography of the chest with contrast. Exam focused on the arteries. 3D rendering (Not supervised by radiologist): MIP and/or 3D reconstructed images were created by the technologist. Radiation optimization: All CT scans at this facility use at least one of these dose optimization techniques: automated exposure control; mA and/or kV adjustment per patient size (includes targeted exams where dose is matched to clinical indication); or iterative reconstruction. Contrast material: OMNI 350; Contrast volume: 100 ml; Contrast route: INTRAVENOUS (IV); COMPARISON: CR XR chest 1V portable [id number] 11/25/2023 2:27 PM RADIATION DOSE METRICS: Total DLP (mGy-cm): 319.97 FINDINGS: Pulmonary arteries: Normal. No pulmonary emboli. Aorta: Unremarkable. No aortic aneurysm. No aortic dissection. Lungs: Unremarkable. No consolidation. No masses. Pleural spaces: Unremarkable. No pneumothorax. No pleural effusion. Heart: Unremarkable. No cardiomegaly. No pericardial effusion. Coronary arteries: No coronary artery calcifications. Lymph nodes: Unremarkable. No enlarged lymph nodes. Bones/joints: Unremarkable. No acute fracture. Soft tissues: Unremarkable. CT/CT angio chest PE protcl [id number] IMPRESSION: No pulmonary emboli.
[2023-11-27] MEDS: sodium chloride 0.9% 1,000 ML 75 ML IV (08:59)
[2023-11-27] MEDS: aspirin 81 mg EC Tablet PO (09:00)
[2023-11-27] MEDS: carvedilol 3.125 mg Tablet PO (09:00)
--- NOTE | 2023-11-27 10:51 | P.DS_ITS ---
Discharge Providers Date of Admission: 11/25/23 18:43 Date of Discharge: November 27, 2023 Attending Provider at Admission: Arnold Hatch MD Attending Provider at Discharge: Arnold Hatch MD Primary Care Provider: GLADYS Valencia Diagnoses at Discharge Discharge Diagnosis (1) NSTEMI (non-ST elevated myocardial infarction): Status: Acute (2) Chest pain: Status: Acute (3) Hypertensive emergency: Status: Acute Reason for Visit Reason for Visit: chest pain Hospital Course Hospital Course Nena Johnson is a 58 year old female With a past medical history of hypertension, hypertension, who presents [facility] for chest pain, patient tells me that this morning at work, she had a sudden onset of substernal chest pain pressure-like pain lasting a few minutes radiating down her right arm, no associated shortness of breath no associated lightheadedness, she was at work so her coworkers advised her to take 81 mg aspirin, however chest pain per assisted so she came to [facility] for evaluation, she did admit that she took phentermine this morning she uses it for weight loss, she is chronically on phentermine and she does have an estradiol patch which I advised her to remove, she did also take progesterone this morning, she is on hormone replacement for postmenopausal symptoms, she tells me that she is recently under a lot of stress, she is going through her divorce, denies any prior history of CAD no prior history of chest pain no family history of CAD currently she is chest pain-free, blood pressure 170/180, pulse 72 respiratory 18, she is on room air, Patient presented to [facility] for NSTEMI, chest pain, hypertensive emergency, received heparin drip, nitro drip, cardiology evaluation, underwent coronary angiography, no obstructive CAD. Venous ultrasound negative for DVT, CT angiogram negative for PE, likely troponin elevation was from elevated blood pressures. She will be discharged on Coreg 3.125 twice daily with losartan 50 mg once daily with a close follow-up with primary care and cardiology as outpatient for blood pressure check Physical Exam Const: COMMON NORMALS: no acute distress and patient oriented x3 Resp: COMMON NORMALS: normal respiratory effort, No retractions, No use of accessory muscles and clear to auscultation bilaterally AUSCULTATION: clear to auscultation bilaterally Cardio: COMMON NORMALS: regular rate, regular rhythm, S1 normal heart sound present and S2 normal heart sound present RATE: regular rate RHYTHM: regular rhythm HEART SOUNDS: S1 normal heart sound present and S2 normal heart sound present GI: COMMON NORMALS: Normal to inspection, nondistended, normoactive bowel sounds present and non-tender Extremity: COMMON NORMALS: no pedal edema Neuro: COMMON NORMALS: patient oriented x3 Psych: COMMON NORMALS: mental status grossly normal Discharge Data Studies Completed and Pending Completed Studies During Hospitalization Category Date Time Status CXRP [XR chest 1V portable [id number]] Stat Exams 11/25/23 14:03 [place] [id number] Stat Ultrasound 11/26/23 08:17 Completed CV. echo complete* [id number] Stat Ultrasound 11/25/23 17:46 Completed Pending at discharge Category Date Time Status CT angio chest PE protcl [id number] Stat Cat Scan 11/27/23 08:33 Ordered [employer] request for service Routine Exams 11/26/23 07:05 Taken Complete Blood Count w/Auto AM LABS Lab 11/28/23 04:00 Ordered Comprehensive Metabolic Panel AM LABS Lab 11/28/23 04:00 Ordered Magnesium AM LABS Lab 11/28/23 04:00 Ordered Phosphorus AM LABS Lab 11/28/23 04:00 Ordered Prothrombin Time INR AM LABS Lab 11/28/23 04:00 Ordered Laboratory Results WBC 6.24 10^3/uL (3.29-11.43) 11/27/23 04:39 RBC 4.54 10^6/uL (3.85-5.65) 11/27/23 04:39 Hgb 13.80 g/dL (11.27-16.99) 11/27/23 04:39 Hct 41.4 % (36-47) 11/27/23 04:39 MCV 91.2 fl (85-98) 11/27/23 04:39 MCH 30.4 pg (27-33) 11/27/23 04:39 MCHC 33.3 g/dL (30-55) 11/27/23 04:39 RDW 12.9 % (12.1-15.1) 11/27/23 04:39 Plt Count 236 10^3/cmm (157-399) 11/27/23 04:39 MPV 10.0 fL (7.4-10.4) 11/27/23 04:39 Neut % (Auto) 53.0 % 11/27/23 04:39 Lymph % (Auto) 36.7 % 11/27/23 04:39 Gem % (Auto) 8.5 % 11/27/23 04:39 Eos % (Auto) 1.0 % 11/27/23 04:39 Baso % (Auto) 0.6 % 11/27/23 04:39 Neut # (Auto) 3.31 10^3/uL (1.8-7.7) 11/27/23 04:39 Lymph # (Auto) 2.3 10^3/uL (0.8-4.8) 11/27/23 04:39 Gem # (Auto) 0.5 10^3/uL (0.2-0.9) 11/27/23 04:39 Eos # (Auto) 0.1 10^3/uL (0.0-0.8) 11/27/23 04:39 Baso # (Auto) 0.0 10^3/uL (0.0-0.1) 11/27/23 04:39 Nucleated RBC % (auto) 0 % 11/27/23 04:39 Nucleated RBCs # 0.0 /100WBC 11/27/23 04:39 PT 13.40 SECONDS (12.1-14.9) 11/27/23 04:39 INR 0.99 (0.8-1.2) 11/27/23 04:39 APTT 71.6 SECONDS (23.9-36.7) H 11/26/23 06:05 D-Dimer <= 0.27 ug/mLFEU (0-0.59) 11/26/23 06:05 Sodium 139 mmol/L (136-145) 11/27/23 04:39 Potassium 3.9 mmol/L (3.5-5.1) 11/27/23 04:39 Chloride 105 mmol/L (98-107) 11/27/23 04:39 Carbon Dioxide 23 mmol/L (22-29) 11/27/23 04:39 Anion Gap 14.9 (5-19) 11/27/23 04:39 BUN 11 mg/dL (6-20) 11/27/23 04:39 Creatinine 0.6 mg/dL (0.5-0.9) 11/27/23 04:39 GFR Calculation 103.0 mL/min (90-130) 11/27/23 04:39 Glucose 85 mg/dL (65-115) 11/27/23 04:39 Estimat Average Glucose 94 11/26/23 06:05 Hemoglobin A1c 4.9 % (4.0-6.0) 11/26/23 06:05 Calculated Osmolality 287 mOsm/kg (285-295) 11/27/23 04:39 Calcium 8.5 mg/dL (8.5-10.5) 11/27/23 04:39 Phosphorus 3.7 mg/dL (2.5-4.5) 11/27/23 04:39 Magnesium 2.0 mg/dL (1.7-2.3) 11/27/23 04:39 Total Bilirubin 1.2 mg/dL (0.15-1.2) 11/27/23 04:39 AST 42 U/L (0-32) H 11/27/23 04:39 ALT 12 U/L (0-33) 11/27/23 04:39 Alkaline Phosphatase 58 U/L (35-105) 11/27/23 04:39 Troponin T Baseline < 6 ng/L (0-10) 11/25/23 14:01 Troponin T 120 Minute 101.2 ng/L (0-10) H 11/25/23 16:12 Delta Troponin T 95.26657 ABS# (0-10) H* 11/25/23 16:12 Troponin T Hi Sens 6Hr 213.7 ng/L (0-10) H 11/25/23 20:12 Troponin T Hi Sens 6Hr Delta 207.53281 ng/L (0-12) H* 11/25/23 20:12 NT-Pro-B Natriuret Pep 180 pg/mL (0-125) H 11/26/23 06:05 Total Protein 6.1 g/dL (6.6-8.7) L 11/27/23 04:39 Albumin 3.8 g/dL (3.5-5.2) 11/27/23 04:39 Globulin 2.3 g/dL (1.3-4.6) 11/27/23 04:39 Triglycerides 57 mg/dL (0-150) 11/26/23 06:05 Cholesterol 172 mg/dL (0-200) 11/26/23 06:05 LDL Cholesterol, Calc 83 mg/dL (50-129) 11/26/23 06:05 HDL Cholesterol 78 mg/dL (60-100) 11/26/23 06:05 LDL/HDL Ratio 1.06 RATIO (0.00-3.22) 11/26/23 06:05 Cholesterol/HDL Ratio 2.21 mg/dL (0.0-4.40) 11/26/23 06:05 Lipase 35 U/L (13-60) 11/25/23 14:01 TSH 2.37 uIU/mL (0.27-4.20) 11/26/23 06:05 Vitals Last Vital Signs Temp 97.8 F 11/27/23 08:54 Pulse 75 11/27/23 08:54 Resp 20 H 11/27/23 08:54 BP 139/74 11/27/23 08:54 Pulse Ox 97 11/27/23 08:54 O2 Del Method Room Air 11/27/23 08:54 Discharge Plan Discharge Patient Disposition: Home Condition: Stable Prescriptions: New losartan 50 mg Tablet 50 mg PO DAILY 30 Days Qty: 30 0RF carvedilol 3.125 mg Tablet 3.125 mg PO BID 30 Days Qty: 60 0RF Continued diazepam 5 mg tablet 5 mg PO TID PRN (Reason: Anxiety) diindolylmethane-broccoli seed 150-30 mg capsule 1 cap PO DAILY pomegranate fruit extract 250 mg capsule 100 mg PO DAILY brassica extract 25 mg 25 mg PO DAILY progesterone micronized 200 mg capsule 200 mg PO DAILY Qty: 90 3RF estradiol 0.025 mg/24 hr patch weekly 1 patch transdermal Q7D Qty: 12 0RF Rx Instructions: on Friday tretinoin 0.025 % cream See Rx Instructions .ROUTE .COMPLEX Rx Instructions: Apply a pea size AMOUNT TO face THREE nights PER WEEK. Gradually increase TO nightly as tolerated. WASH off in THE morning. Discontinued propranolol 20 mg tablet 20 mg PO BID phentermine 37.5 mg tablet 18.75 mg PO QAM PRN (Reason: appetite) Discharge Orders: Discharge Order (Routine); Ordered 11/27/23 Ordered By: Arnold Hatch Referrals: Mary Martinez FNP [Nurse Practitioner] - 12/03/23 3:15 pm Connie Smith FNP [Primary Care Provider] - 12/01/23 2:00 pm Discharge Diet: Cardiac Discharge Activity: Resume usual activity Patient Instructions: Losartan (By mouth) (Cozaar), Carvedilol (By mouth) (Coreg, Coreg CR, Hypertenevide-12.5), Hypertension (DC), Coronary Angioplasty (DC), Opioid Safety, Post Angiogram Home Care Instructions Activity Restrictions/Additional Instructions: - Please record your blood pressures twice a day, record them in a log and bring them to your primary care physician's office ? If you have recurrent chest pain please go to the emergency room ? Please stop taking phentermine Discharge Attestations Time Spent in Discharge Care*: greater than 30 min Quality Metrics Clinical Quality Measures [ No reported AMI, CVA or VTE this stay] Coding Level of Care Code 66957 Total time (in minutes) for Discharge: 45 Diagnoses NSTEMI (non-ST elevated myocardial infarction) I21.4 Chest pain R07.9 Hypertensive emergency I16.1
[2023-11-27] MEDS: iohexol 350 mg/mL 500 mL Btl (per mL) IV (11:13)
[2023-11-27] MEDS: losartan 50 mg Tablet PO (11:14)
[2023-11-27] MEDS: acetaminophen 325 mg Tablet 650 MG PO (11:15)
== END 2023-11-27 12:21 | disposition home or self-care (01) | DRG 287 ==
LOC: ER 17:23 → CSU 18:44
PROVIDERS: Emergency Medicine; Internal Medicine; Admitting Provider Family Medicine; Emergency Provider Family Medicine; PCP Registered Nurse; Visit Provider Family Medicine
PROC: B2111ZZ Fluoroscopy of Multiple Coronary Arteries using Low Osmolar Contrast (ICD-10-PCS; principal; 2023-11-26 07:00)
DX: I16.1 Hypertensive emergency (principal); I10 Essential (primary) hypertension; F17.210 Nicotine dependence, cigarettes, uncomplicated; Z79.899 Other long term (current) drug therapy; Z79.890 Hormone replacement therapy; Z78.0 Asymptomatic menopausal state
CPT/HCPCS: 36415; 71045; 71275; 80053; 80061; 83036; 83690; 83735; 83880; 84100; 84443; 84484; 85025; 85378; 85610; 85730; 93005; 93306; 93458; 93970; 94664; 96365; 96367; 96374; 96375; 96376; 99152; 99153; 99285; C1769; C1887; C1894; C9113; J1644; J2250; J3010; J3490; J7030; Q0163; Q9967

== ENCOUNTER 2023-12-08 14:43 | Outpatient (CLI) | payer OTHER, SELFPAY ==
[2023-12-08 15:25] LABS: Free T4 Free Thyroxine 1.26 ng/dL (0.82-1.77); Testosterone Total 25.2 ng/dL (2.9-40.8); Thyroid Stimulating Hormone 0.94 uIU/mL (0.27-4.20)
== END 2023-12-08 14:44 | disposition home or self-care (01) ==
LOC: LAB 14:46
PROVIDERS: Nurse Practitioner Family; PCP Registered Nurse; Visit Provider Internal Medicine
DX: E07.9 Disorder of thyroid, unspecified (principal); Z78.0 Asymptomatic menopausal state
CPT/HCPCS: 36415; 84403; 84439; 84443

== ENCOUNTER 2023-12-24 15:15 | Outpatient (CLI) | payer OTHER, SELFPAY ==
--- NOTE | 2023-12-24 15:44 | MM_ITS ---
WS: [id number] BILATERAL 3D TOMOSYNTHESIS DIGITAL SCREENING MAMMOGRAPHY WITH CAD CLINICAL INFORMATION: SCREENING HISTORY: Screening mammogram. No current complaints. COMPARISON: 11/07/2022 TECHNIQUE: Bilateral CC and MLO views. FINDINGS: The breasts are composed of heterogeneous fibroglandular density tissue, which can limit the detectio n of small underlying mass lesions. No suspicious mass, asymmetry, calcifications, or architectural d istortion. No evidence of malignancy. A few incidental punctate calcifications. A few punctate and lo osely clustered calcifications RIGHT breast. IMPRESSION: MM/[place] [id number] BI-RADS: 2-Benign FOLLOW UP: 1 Year Follow-up Recommend return to annual screening mammography.
== END 2023-12-24 15:16 | disposition home or self-care (01) ==
LOC: RAD 15:15
PROVIDERS: PCP Registered Nurse; Visit Provider Registered Nurse
DX: Z12.31 Encounter for screening mammogram for malignant neoplasm of breast (principal)
CPT/HCPCS: 77063; 77067

== ENCOUNTER 2024-08-25 10:43 | Outpatient (CLI) | payer OTHER, SELFPAY ==
[2024-08-25 11:34] LABS: Creatinine Urine, Random 90 mg/dL (28-217); Microalbum Creatinine Ratio Ur 11 mg/dL (0-20); Microalbumin Random Urine 1 ug/dL (0-20)
[2024-08-25 11:36] LABS: Estmated Average Glucose 103; Hemoglobin A1C 5.2 % (4.0-6.0)
[2024-08-25 11:38] LABS: Alanine Aminotransferase 11 U/L (0-33); Alkaline Phosphatase 66 U/L (35-105); Anion Gap 14.2 (5-19); Aspartate Amino Transferase 23 U/L (0-32); Blood Urea Nitrogen 17 mg/dL (6-20); Carbon Dioxide 25 mmol/L (22-29); Chloride 104 mmol/L (98-107); Chol HDL Ratio 2.73 mg/dL (0.0-4.40); Cholesterol 169 mg/dL (0-200); Free T4 Free Thyroxine 1.28 ng/dL (0.82-1.77); Globulin 2.3 g/dL (1.3-4.6); Glomerular Filtration Rate 85.9 mL/min (90-130); Glucose 102 mg/dL (65-115); HDL Cholesterol 62 mg/dL (60-100); LDL Cholesterol Calculated 78 mg/dL (50-129); LDL HDL Ratio 1.26 RATIO (0.00-3.22); Osmolality Calculated 290 mOsm/kg (285-295); Potassium 4.2 mmol/L (3.5-5.1); Sodium 139 mmol/L (136-145); Testosterone Total 30.1 ng/dL (2.9-40.8); Total Bilirubin 0.9 mg/dL (0.15-1.2); Total Protein 6.3 g/dL (6.6-8.7); Triglycerides 147 mg/dL (0-150)
[2024-08-26 05:50] LABS: T3 Total 96 ng/dL (76-181)
== END 2024-08-25 10:44 | disposition home or self-care (01) ==
LOC: LAB 10:48
PROVIDERS: PCP Registered Nurse; Visit Provider Internal Medicine
DX: E07.9 Disorder of thyroid, unspecified (principal); Z78.0 Asymptomatic menopausal state; G25.0 Essential tremor
CPT/HCPCS: 36415; 80053; 80061; 82044; 83036; 84403; 84439; 84443; 84480

== ENCOUNTER 2025-03-24 12:43 | Outpatient (CLI) | payer OTHER, SELFPAY ==
[2025-03-24 13:39] LABS: Alanine Aminotransferase 9 U/L (0-33); Albumin Level 4.3 g/dL (3.5-5.2); Alkaline Phosphatase 67 U/L (35-105); Anion Gap 14.6 (5-19); Aspartate Amino Transferase 15 U/L (0-32); Blood Urea Nitrogen 12 mg/dL (6-20); Calcium 9.5 mg/dL (8.5-10.5); Carbon Dioxide 28 mmol/L (22-29); Chloride 102 mmol/L (98-107); Cholesterol 176 mg/dL (0-200); Free T4 Free Thyroxine 1.42 ng/dL (0.82-1.77); Globulin 2.9 g/dL (1.3-4.6); Glucose 80 mg/dL (65-115); HDL Cholesterol 59 mg/dL (60-100); Osmolality Calculated 289 mOsm/kg (285-295); Potassium 4.6 mmol/L (3.5-5.1); Sodium 140 mmol/L (136-145); Thyroid Stimulating Hormone 0.95 uIU/mL (0.27-4.20); Total Protein 7.2 g/dL (6.6-8.7); Triglycerides 73 mg/dL (0-150)
== END 2025-03-24 12:44 | disposition home or self-care (01) ==
LOC: LAB 12:44
PROVIDERS: PCP Registered Nurse; Visit Provider Internal Medicine
DX: I10 Essential (primary) hypertension (principal); G25.0 Essential tremor; Z78.0 Asymptomatic menopausal state
CPT/HCPCS: 36415; 80053; 80061; 84439; 84443